=== PATIENT | male | born 1955 | race Caucasian/White ===

== ENCOUNTER → 2016-03-28 | Outpatient (CLI) | payer OTHER | LOC: RAD 12:02 | PROVIDERS: ATTEND Internal Medicine | DX: C71.2 Malignant neoplasm of temporal lobe (principal) | CPT/HCPCS: 70553; A9577 ==

== ENCOUNTER → 2016-06-21 | Outpatient (CLI) | payer OTHER | LOC: RAD 13:21 | PROVIDERS: ATTEND Internal Medicine | DX: C71.2 Malignant neoplasm of temporal lobe (principal) | CPT/HCPCS: 70553; A9577 ==

== ENCOUNTER → 2016-08-23 | Outpatient (CLI) | payer OTHER ==
--- NOTE | 2016-08-23 15:39 | RADIOLOGY REPORT (SQ) ---
EXAM DESCRIPTION: MRI HEAD COMBO COMPLETED DATE/TIME: 08/23/2016 2:57 pm REASON FOR STUDY: MALIGNANT NEOPLASM OF TEMPORAL LOBE C71.2 MALIGNANT NEOPLASM OF TEMPORAL LOBE COMPARISON: 06/21/2016 TECHNIQUE: Multiplanar imaging includes noncontrasted T1, T2, FLAIR, diffusion with ADC map and post gadolinium contrast T1 sequences. Images stored on PACS. CONTRAST TYPE AND DOSE: 15 mL Multihance. RENAL FUNCTION: GFR > 60. LIMITATIONS: None. FINDINGS: Intra-axial cavity posterior left temporal lobe status post craniotomy not significantly c hanged in size. However associated primarily vasogenic edema and non mass enhancement now extends in to the anterior margins of the temporal lobe, best seen on series 12, image 18, and series 7, image 1 8. Progression of disease medially also evident series 11, image 25 now abutting the falx in the occ ipital lobe. No midline shift. No new lesions are identified. IMPRESSION: Progression of local invasion from residual tumor in the surgical bed. TECHNICAL DOCUMENTATION: JOB ID: [id number] [employer]- All Rights Reserved
== END ==
LOC: RAD 13:29
PROVIDERS: ATTEND Internal Medicine
DX: C71.2 Malignant neoplasm of temporal lobe (principal)
CPT/HCPCS: 82565; 70553; A9577

== ENCOUNTER 2016-10-18 19:54 | Inpatient (IN) | payer OTHER ==
[~2016-10-18 19:54] MED LIST: ROCURONIUM BROMIDE INJ 50 MG/5 ML VIAL IV ONE
[2016-10-18] MEDS ORDERED: NORMAL SALINE 1000 ML 1,000 ML IV PRN (20:04)
[2016-10-18] MEDS ORDERED: PIPERACILLIN/TAZOBACTAM 3.375 GM VIAL IV ONE (20:13)
[2016-10-18] MEDS ORDERED: VANCOMYCIN HCL INJ 1000 MG VIAL ONE (20:15)
[2016-10-18] MEDS ORDERED: NOREPINEPHRINE BITARTRATE INJ/PF 4 MG/4 ML SDV IV ONE (20:15)
[2016-10-18] MEDS ORDERED: NORMAL SALINE 1000 ML 1,000 ML IV ONE ×2 (20:16→21:01)
--- NOTE | 2016-10-18 20:18 | ER Document Report ---
ED General - General Chief Complaint: Respiratory Arrest Stated Complaint: DIFFICULTY BREATHING Time Seen by Provider: 10/18/16 20:03 Cannot obtain history due to: Unstable vital signs Notes: Patient is a 61-year-old male reportedly with a history of glioblastoma who arrives by EMS for respiratory distress, altered mental status and tachycardia. Patient denies being actively bagged. No additional history can be obtained secondary to the critical nature of this patient at time of arrival. TRAVEL OUTSIDE OF THE [place] IN LAST 30 DAYS: No - Related Data Allergies/Adverse Reactions: No Known Allergies Allergy (Verified 03/12/15 17:40) Home Medications: Current Home Medications Atropine Sulfate [Atropine 1% Oph Soln 5 ml] 4 drop SL Q2HP PRN 10/19/16 [ History] Levetiracetam [Keppra] 750 mg PO BID 10/19/16 [History] Past Medical History - General Information source: Emergency Med Personnel - Social History Smoking Status: Unknown if Ever Smoked Lives with: Spouse/Significant other Family History: Reviewed & Not Pertinent Malignancy Medical History: Reports Hx Brain Cancer Past Surgical History: Reports: Hx Abdominal Surgery - Hernia Review of Systems - Review of Systems -: Yes ROS unobtainable due to patient's medical condition Physical Exam - Vital signs Vitals: Resp Pulse Ox 28 H 86 L 10/18/16 19:56 10/18/16 19:56 Interpretation: Hypotensive, Tachycardic, Hypoxic, Tachypneic, Febrile Notes: PHYSICAL EXAMINATION: GENERAL: Obtunded, GCS 3 HEAD: Atraumatic, normocephalic. EYES: sclera anicteric, conjunctiva are normal. ENT: nares patent, oropharynx clear without exudates. Dry mucous membranes. NECK: supple without lymphadenopathy LUNGS: Hypoventilatory in all lung orr. HEART: Regular tachycardia without murmurs ABDOMEN: Soft, normoactive bowel sounds. No guarding, no rebound. No masses appreciated. EXTREMITIES: no pitting or edema. No cyanosis. NEUROLOGICAL: GCS 3. No response to noxious stimuli in any extremity. PSYCH: Obtunded SKIN: Warm, Dry, normal turgor, no rashes or lesions noted. Course - Re-evaluation Re-evalutation: 10/18/16 20:13 Patient presents in respiratory distress, requiring bagging at time of arrival, 76% on room air. Patient was obtunded, GCS of 3. On initial assessment patient is tachycardic into the 150s, unresponsive, tachypneic but ventilating poorly. He was visibly cyanotic. Immediately upon arrival, 2 additional points of access were established. Patient was placed on monitoring and initial set of vitals were obtained. This did show tachycardia, hypoxemia despite bagging, and mild hypotension with an initial systolic of 96. A norepinephrine infusion was preventively started in anticipation of hypotension in the setting of intubation. IV fluids were initiated. Full laboratories were pulled. A temp Ruffin was placed. After establishing an norepi infusion, patient was intubated using ketamine and rocuronium. Patient did have a highly anterior airway requiring a second attempt to achieve intubation. Despite intubation, patient remained mildly hypoxemic at 95% on 100% FiO2. A portable chest x-ray will be obtained as I suspect likely pneumonia as etiology of his presentation today. Empiric broad-spectrum antibiotics have been initiated with IV piperacillin and sulbactam and vancomycin. 10/18/16 20:18 Chest x-ray does demonstrate apparent bilateral lobe pneumonia. Initial FiO2 was set to 100%, PEEP set to 8 and patient was satting 91-92%. PEEP was increased to 12 and FiO2 remain at 100%. 10/18/16 20:43 FiO2 has been able to be weaned down to 80% PEEP remains at 12. Patient is saturating 94% on these settings. Will continue to try to down titrate both PEEP and FiO2. Laboratories are returning demonstrating leukocytosis consistent with the overall picture of severe sepsis. 10/18/16 21:01 Patient's lactate is elevated at 4.4 consistent with severe sepsis. Third liter of fluid will be started at this time. 10/18/16 21:17 I have discussed the patient's grave status with his and son at length. They inform me that the patient is a terminal hospice patient but they had still wanted him as a full code. I have discussed this case at length with the patient's oncologist Dr. Whelan who reports that the patient has had a progressive decline and has an incurable glioblastoma and is not a candidate for any additional therapies. 10/18/16 21:41 I have discussed at length with the and son proceeding with comfort measures which would include extubation with aggressive analgesia and anxiolysis as well as complete discontinuation of all therapies toward curative measures including IV fluids, IV antibiotics, and central line placement. I have presented the alternative of continuing aggressive measures that we have already pursued including ICU admission, ongoing IV antibiotics, vasopressors, continued aggressive IV hydration. After an extensive conversation and presenting the approaches to both the and son, they have elected to proceed with comfort measures. I believe that this is completely appropriate given that the patient does have terminal glioblastoma and is already on hospice care. Will begin a Versed infusion, plan for intermittent fentanyl boluses as needed, we will remove the Ruffin catheter, 1 of the IV line, discontinue IV fluid, discontinue the monitor, and contact respiratory therapy for extubation. 10/18/16 22:02 Patient has been extubated, a Versed infusion was started and 100 mcg of fentanyl was given. Glycopyrrolate was given to decrease secretions. Family has been brought to the bedside. Patient is very rapidly desaturated to the mid 70s but does not appear to have any air hunger. Will continue to monitor although anticipate the patient will pass relatively quickly 10/18/16 22:32 Patient is maintaining his BP, has increased his tachycardia. Remains hypoxic although he is maintained at 70% for over 30 minutes now. I discussed this case with Dr. Beckwith who will admit for comfort measures to the medical floor. - Vital Signs Vital signs: Temp Pulse Resp BP Pulse Ox 98.1 F 22 H 93/50 L 80 L 10/19/16 00:00 10/19/16 01:38 10/19/16 00:00 10/19/16 00:00 - Laboratory Result Diagrams: 10/18/16 20:06 10/18/16 20:06 Laboratory results interpreted by me: 10/18/16 10/18/16 10/18/16 20:06 20:06 20:06 WBC 25.0 H RBC 5.86 H Hgb 18.9 H Hct 58.6 H MCV 100 H RDW 14.2 H Band Neutrophils % 19 H Lymphocytes % (Manual) 7 L Abs Neuts (Manual) 19.8 H Abs Monocytes (Manual) 3.3 H Sodium 152.4 H Chloride 110 H BUN 77 H Creatinine 2.10 H Est GFR ( Amer) 39 L Est GFR (Non-Af Amer) 32 L Glucose 209 H Lactic Acid 4.4 H Total Bilirubin 1.6 H Direct Bilirubin 0.9 H AST 83 H ALT 96 H Alkaline Phosphatase 142 H Urine Protein Urine Ketones Urine Bilirubin Urine Urobilinogen 10/18/16 20:45 WBC RBC Hgb Hct MCV RDW Band Neutrophils % Lymphocytes % (Manual) Abs Neuts (Manual) Abs Monocytes (Manual) Sodium Chloride BUN Creatinine Est GFR ( Amer) Est GFR (Non-Af Amer) Glucose Lactic Acid Total Bilirubin Direct Bilirubin AST ALT Alkaline Phosphatase Urine Protein 100 H Urine Ketones TRACE H Urine Bilirubin SMALL H Urine Urobilinogen 2.0 H - Diagnostic Test Radiology reviewed: Image reviewed, Reports reviewed Radiology results interpreted by me: 10/18/16 20:18 Chest x-ray: Apparent bilateral infiltrates. ET tube in the appropriate position. - EKG Interpretation by Me Additional EKG results interpreted by me: 10/19/16 03:12 Sinus tachycardia. Rate 152. QTC is prolonged at 541. Findings consistent with LVH. Procedures - Intubation Orotracheal Time of Intubation: 20:10 Airway evaluation: Copious secretions, Other - Anterior airway Mallampati Classification: Class 3 Medications: Ketamine, Other Critical Care Note - Critical Care Note Total time excluding time spent on procedures (mins): 98 Comments: Critical care time spent obtaining history from patient or surrogate, discussions with consultants, development of treatment plan with patient or surrogate, evaluation of patient's response to treatment, examination of patient , ordering and performing treatments and interventions, ordering and review of laboratory studies, re-evaluation of patient's condition, ordering and review of radiographic studies and review of old charts Discharge - Discharge Clinical Impression: Severe sepsis, Respiratory failure, Hypoxemia, Glioblastoma, Comfort measures only status, Lactic acidosis, Multifocal pneumonia Condition: Critical Disposition: ADMITTED INPATIENT [facility] Unit Admitted: Medical Floor
[2016-10-18] MEDS ORDERED: FENTANYL CITRATE INJ/PF 100 MCG/2 ML AMPUL ONE (20:30)
[2016-10-18 20:36] LABS: HEMATOCRIT 58.6 % (37.9-51.0); HEMOGLOBIN 18.9 g/dL (13.5-17.0); HGB HCT DIFFERENCE -1.9; MEAN CORPUSCULAR HEMOGLOBIN 32.3 pg (27.0-33.4); MEAN CORPUSCULAR HGB CONC 32.3 g/dL (32.0-36.0); MEAN CORPUSCULAR VOLUME 100 fl (80-97); RED BLOOD COUNT 5.86 10^6/uL (4.35-5.55); RED CELL DISTRIBUTION WIDTH 14.2 % (11.5-14.0)
[2016-10-18 20:45] LABS: ALANINE AMINOTRANSFERASE 96 U/L (21-72); ALBUMIN 4.1 g/dL (3.5-5.0); ALKALINE PHOSPHATASE 142 U/L (38-126); ANION GAP 18 (5-19); ASPARTATE AMINO TRANSFERASE 83 U/L (17-59); BILIRUBIN,DIRECT 0.9 mg/dL (0.0-0.4); BILIRUBIN,TOTAL 1.6 mg/dL (0.2-1.3); BLOOD UREA NITROGEN 77 mg/dL (7-20); CALCIUM 9.8 mg/dL (8.4-10.2); CARBON DIOXIDE 24 mmol/L (22-30); CHLORIDE 110 mmol/L (98-107); GLUCOSE 209 mg/dL (75-110); SODIUM 152.4 mmol/L (137-145); TOTAL PROTEIN 7.9 g/dL (6.3-8.2)
--- NOTE | 2016-10-18 20:46 | RADIOLOGY REPORT (SQ) ---
EXAM DESCRIPTION: CHEST SINGLE VIEW COMPLETED DATE/TIME: 10/18/2016 8:29 pm REASON FOR STUDY: fever, intubation COMPARISON: 04/22/2015 EXAM PARAMETERS: NUMBER OF VIEWS: One view. TECHNIQUE: Single frontal radiographic view of the chest acquired. RADIATION DOSE: NA LIMITATIONS: None. FINDINGS: LUNGS AND PLEURA: Consolidation right lower lobe with additional patchy airspace disease i n the right middle lobe and left lower lobe compatible with multifocal pneumonia. MEDIASTINUM AND HILAR STRUCTURES: Stable in size and contour. HEART AND VASCULAR STRUCTURES: Heart normal in size. Normal vasculature. BONES: No acute findings. HARDWARE: Endotracheal tube terminates approximately 15 mm above the александр on 1st AP image and 2.9 c m above the александр on 2nd AP image. Nasogastric tube terminates expected location of the stomach. OTHER: No other significant finding. IMPRESSION: MULTIFOCAL AIRSPACE DISEASE COMPATIBLE WITH PNEUMONIA. SATISFACTORY PLACEMENT OF ENDOTRACHEAL TUBE AND NASOGASTRIC TUBE. TECHNICAL DOCUMENTATION: JOB ID: [id number]
[2016-10-18] MEDS ORDERED: ACETAMINOPHEN 650 MG SUPP.RECT PR ONE (21:00)
[2016-10-18 21:03] LABS: BASOPHILS % (MANUAL) 0 % (0-2); EOSINOPHILS % (MANUAL) 0 % (0-6); LYMPHOCYTES % (MANUAL) 7 % (13-45); TOTAL CELLS COUNTED 100
[2016-10-18 21:04] LABS: ANISOCYTOSIS SLIGHT; TOXIC VACUOLATION PRESENT
[2016-10-18 21:06] LABS: PLATELET CLUMPS PRESENT; POIKILOCYTOSIS SLIGHT
[2016-10-18 21:08] LABS: BAND NEUTROPHILS % (MANUAL) 19 % (3-5); OVALOCYTES SLIGHT
[2016-10-18] MEDS: FENTANYL CITRATE INJ/PF 100 MCG/2 ML AMPUL IV PRN ×2 (21:08→22:09)
[2016-10-18 21:39] LABS: VENOUS BLOOD HCO3 22.8 mmol/L (20-32); VENOUS BLOOD PCO2 47.8 mmHg (35-63); VENOUS BLOOD PH 7.3 (7.30-7.42)
[2016-10-18] MEDS ORDERED: MIDAZOLAM HCL 100 ML IV PRN (21:39)
[2016-10-18] MEDS ORDERED: GLYCOPYRROLATE INJ 0.4 MG/2 ML VIAL IM ONE (21:39)
[2016-10-18] MEDS ORDERED: ONDANSETRON HCL INJ/PF 4 MG/2 ML SDV IV ONE (22:00)
[2016-10-18 22:01] LABS: AMORPHOUS SEDIMENT,URINE TRACE /HPF; APPEARANCE,URINE CLOUDY; BILIRUBIN,URINE SMALL (NEGATIVE); GLUCOSE, URINE NEGATIVE (NEGATIVE); KETONES,URINE TRACE mg/dL (NEGATIVE); LEUKOCYTE ESTERASE,URINE NEGATIVE (NEGATIVE); NITRITE,URINE NEGATIVE (NEGATIVE); PROTEIN,URINE 100 mg/dL (NEGATIVE); URINE SPECIFIC GRAVITY 1.028
[2016-10-18] MEDS ORDERED: 1/2 NORMAL SALINE 1,000 ML IV PRN (23:41)
[2016-10-18] MEDS ORDERED: MORPHINE SULFATE 10 MG/ML INJ IV PRN (23:42)
[2016-10-18] MEDS ORDERED: IPRATROPIUM/ALBUTEROL 0.5-2.5 MG/3 ML AMPUL NEB PRN (23:43)
--- NOTE | 2016-10-19 00:02 | PDOC H&P ---
History of Present Illness Admission Date/PCP: 10/18/16 22:43 DENISE PEREZ MD Patient complains of: Difficulty breathing History of Present Illness: DELIO TUCKER is a 61 year old male with known terminal glioblastoma, with patient not a candidate for any additional therapy, per ER physician discussion earlier with Dr. Perez, who presents to the emergency room in profound respiratory distress, obtunded, with [place] Coma Scale of 3. Initial wishes of family were for full code workup and treatment. thus, he was Intubated in the emergency room, with antibiotic started, with chest x-ray revealing multifocal pneumonia. However, after emergency room physician discussed the patient with Dr. Perez, and had lengthy discussion with son and , who were present at his bedside, they have decided to proceed with comfort measures only. Patient has been extubated by emergency room physician, with Ruffin catheter removed. Patient has been discussed with emergency room physician who evaluated the patient. Patient is unresponsive and is able to provide no history whatsoever in terms of acute or chronic events, review of systems, personal habits, family history, etc. and son are present at bedside. No old inpatient records available for review. No further information available this point in time. . Dictation via voice recognition software. Laboratory results are listed in [employer] and are reviewed. X-ray summary results are listed below, with full report(s) reviewed. . EKG reviewed. No known drug allergies. Home medications initially autopopulated into [employer] may not accurately reflect patient's true medications, dosages, and/or frequencies. photographic laboratory technician to reconcile medications. Medications discussed, with bottle review also, with . REVIEW OF SYSTEMS: See history and present illness. No further information available this point in time. PHYSICAL EXAMINATION: 5 feet 9 inches tall. 70 kg. BMI 22.8 kg/m. As part of comfort care measures , patient has been taken off the monitor. Thin otherwise well-developed male appearing approximately his stated age. Asleep. Maintaining airway well. and son are present at his side. Skin is warm and dry. No grossly obvious evidence of rash in areas of skin examined. No subcutaneous nodules palpated. ENT: Hearing cannot be adequately evaluated due to his current status. Eyes: No scleral icterus. Pupils equal and reactive to light at 3 mm. [place] conjunctivae. No raccoon eyes. Neck is nontender to gentle palpation. Midline trachea. No palpable thyroid nodule mass enlargement or tenderness. Lymphatic: No palpable cervical or clavicular nodes. Neck and lymphatic exams limited by patient body habitus. Psychiatric: Cannot be adequately evaluated due to his current status. Lungs: Auscultation reveals equal breath sounds bilaterally. No use of accessory respiratory muscles. Faintly coarse breath sounds diffusely bilaterally. Cardiovascular: Heart regular rate and rhythm, without gallop murmur or rub. No carotid or abdominal aortic bruits. No ankle or pedal edema. Faintly palpable dorsalis pedis pulses. Abdomen:soft slightly distended nontender with positive bowel sounds. Unable to adequately evaluate abdomen for masses or organomegaly due to distention. Extremities: Feet are warm and dry. No calf tenderness to compression. No grossly obvious visual evidence of calf swelling. Past Medical History Malignancy Medical History: Reports: Brain Cancer - Glioblastoma, end-stage Social History Information Source: Relative - , Emergency Med Personnel, [facility] Records Lives with: Spouse/Significant other Smoking Status: Unknown if Ever Smoked - Advance Directive Resuscitation Status: Comfort Measures Only Surrogate healthcare decision maker:: Family History Family History: Reviewed & Not Pertinent Parental Family History Reviewed: No - Patient not able to provide any information. Children Family History Reviewed: No - Patient not able to provide any information. Sibling(s) Family History Reviewed.: No - Patient not able to provide any information. Medication/Allergy Home Medications: Atropine Sulfate [Atropine 1% Oph Soln 5 ml] 4 drop SL Q2HP PRN 10/19/16 Diazepam [Valium 5 mg Tablet] 5 mg SL QIDP PRN #14 tablet 10/19/16 Morphine Sulfate 0.25 ml PO Q1HP PRN #30 ml 10/19/16 Allergies/Adverse Reactions: No Known Allergies Allergy (Verified 03/12/15 17:40) Physical Exam Vital Signs: Temp Pulse Resp BP Pulse Ox 99.9 F 20 109/78 86 L 10/18/16 21:46 10/18/16 22:00 10/18/16 21:46 10/18/16 22:00 Intake & Output 10/17/16 10/18/16 10/19/16 00:59 00:59 00:59 Weight 70 kg Results Impressions: Chest X-Ray 10/18/16 20:03 IMPRESSION: MULTIFOCAL AIRSPACE DISEASE COMPATIBLE WITH PNEUMONIA. SATISFACTORY PLACEMENT OF ENDOTRACHEAL TUBE AND NASOGASTRIC TUBE. Assessment & Plan - Diagnosis (1) Acute respiratory failure with hypoxemia Is this a current diagnosis for this admission?: Yes (2) Comfort measures only status Is this a current diagnosis for this admission?: YesPlan: Bedside discussion in layperson's terms with and son. We will continue with maintenance IV fluid. If IV becomes nonfunctional or comes out, will not reinsert. As needed medications for comfort. No monitor. No vital signs. No labs. No x-rays. Impression and plans were discussed with and son, both of whom concur. Time spent in evaluation and management of patient: 48 minutes. (3) Multifocal pneumonia Is this a current diagnosis for this admission?: YesPlan: and son both wish to continue with antibiotics. (4) Glioblastoma Is this a current diagnosis for this admission?: YesPlan: End-stage. Per emergency room physician with Dr. Perez, patient not a candidate for any additional therapy. - Time Time Spent: 30 to 50 Minutes Medications reviewed and adjusted accordingly: Yes Anticipated discharge: Other Within: within 24 hours - Inpatient Certification Based on my medical assessment, after consideration of the patient's comorbidities, presenting symptoms, or acuity I expect that the services needed warrant INPATIENT care.: Yes I certify that my determination is in accordance with my understanding of Medicare's requirements for reasonable and necessary INPATIENT services [42 CFR 412.3e].: Yes Medical Necessity: Need For IV Fluids, Need for IV Antibiotics, Other Post Hospital Care: Other
[2016-10-19 00:43] VITALS: BP 93/50
[2016-10-19] MEDS ORDERED: CEFEPIME 2 GM/D5W RTU 50 ML IV SCH (10:00)
[2016-10-19] MEDS ORDERED: AZITHROMYCIN 500 MG in DEXTROSE 5%-WATER 250 ML IV SCH (10:00)
--- NOTE | 2016-10-19 12:36 | PDOC CONSULTATION ---
Consultation Consult Date: 10/19/16 Attending physician:: ESTEFANIA MARTINEZ Consult reason:: Known history of progressive glioblastoma, weakness History of Present Illness Admission Date/PCP: 10/18/16 23:43 DENISE PEREZ MD Patient complains of: Weakness, dehydration History of Present Illness: 61-year-old male with known history of glioblastoma, we have been caring for them now for about 2 years, recently he has had overt progression of disease, he has progressed through multiple lines of therapy and ultimately we decided that he was not a candidate for any further therapies, we have admitted him to hospice, he was at home and became obtunded, his and family decided to discontinue hospice and bring him to the hospital. He was intubated for a short time, and then he was extubated to room air, family ultimately decided to continue comfort measures only, today we had a long discussion about that, we spent greater than 70 minutes in discussion as well as coordination of care this morning. Past Medical History Malignancy Medical History: Reports: Brain Cancer Past Surgical History Past Surgical History: Reports: Other - Craniotomy with biopsy Social History Lives with: Spouse/Significant other Smoking Status: Unknown if Ever Smoked - Advance Directive Resuscitation Status: Comfort Measures Only Family History Family History: Reviewed & Not Pertinent Parental Family History Reviewed: Yes Children Family History Reviewed: Yes Sibling(s) Family History Reviewed.: Yes Medication/Allergy Home Medications: Atropine Sulfate [Atropine 1% Oph Soln 5 ml] 4 drop SL Q2HP PRN 10/19/16 Diazepam [Valium 5 mg Tablet] 5 mg SL QIDP PRN #14 tablet 10/19/16 Morphine Sulfate 0.25 ml PO Q1HP PRN #30 ml 10/19/16 Allergies/Adverse Reactions: No Known Allergies Allergy (Verified 03/12/15 17:40) Review of Systems ROS unobtainable: Due to mental status Physical Exam Vital Signs: Temp Pulse Resp BP Pulse Ox 98.1 F 22 H 93/50 L 80 L 10/19/16 00:00 10/19/16 01:38 10/19/16 00:00 10/19/16 00:00 Intake & Output 10/18/16 10/19/16 10/20/16 06:59 06:59 06:59 Intake Total 275 Balance 275 General appearance: PRESENT: no acute distress Neurological exam: PRESENT: altered, other - Obtunded Results Impressions: Chest X-Ray 10/18/16 20:03 IMPRESSION: MULTIFOCAL AIRSPACE DISEASE COMPATIBLE WITH PNEUMONIA. SATISFACTORY PLACEMENT OF ENDOTRACHEAL TUBE AND NASOGASTRIC TUBE. Assessment & Plan - Diagnosis (1) Glioblastoma Is this a current diagnosis for this admission?: YesPlan: No longer a candidate for any therapy, comfort measures only, we are coordinating with community hospice to probably discharge today with comfort measures, coordinating home equipment needed for this. - Time Time Spent: Greater than 70 Minutes Critical Time spent with patient: 35 or more minutes
--- NOTE | 2016-10-19 14:44 | PDOC DISCHARGE SUMMARY ---
General - Admit/Disc Date/PCP Admission Date/Primary Care Provider: 10/18/16 23:43 DENISE LEMON MD Discharge Date: 10/19/16 - Additional Information Resuscitation Status: Comfort Measures Only Discharge Diet: As Tolerated Discharge Activity: Bedrest Home Medications: Atropine Sulfate [Atropine 1% Oph Soln 5 ml] 4 drop SL Q2HP PRN 10/19/16 Diazepam [Valium 5 mg Tablet] 5 mg SL QIDP PRN #14 tablet 10/19/16 Morphine Sulfate 0.25 ml PO Q1HP PRN #30 ml 10/19/16 History of Present Illness Patient complains of: difficulty breathing History of Present Illness: DELIO TUCKER is a 61 year old male Hospital Course Hospital Course: Initial wishes of family workup pursued with full code treatment. However, after emergency room physician discussed the patient with Dr. Lemon, and had lengthy discussion with son and , who were present at his bedside, they have decided to proceed with comfort measures only. Patient has been extubated by emergency room physician, with Ruffin catheter removed. Patient has been discussed with emergency room physician who evaluated the patient. Patient is unresponsive and is able to provide no history whatsoever in terms of acute or chronic events, review of systems, personal habits, family history, etc. and son are present at bedside. No old inpatient records available for review. I inherited his care this morning and he remains unresponsive with irregular respiratory pattern, RA sats of 80%. I spoke with his and she confirms [facility], just seen last Friday and confirmed available for continue care at home. His states emphatically that she doesn't want him to in the hospital and desperately wants to take him home. I discussed the case with dr lemon and confirms his disease is progressive and there are no treatment options available. She asked if treating his pneumonia would help him and while we could suppress his symptoms, given his current mental state it is high probability he will aspirate and never clear his pneumonia. Furthermore, his O2 sat is low and the neurologic damage likely already taking place so his chance for meaningful recovery passed with relentless progression of his disease. Arrangements made for Hospice to meet them at the home later today. I demonstrated how to draw up and administer liquid morphine. We discussed terminal agitation and other end of life symptoms and which medicine to use to control the most likely symptoms as they arise. She seemed able and is determined to get him home where she can continue to care for him. Physical Exam Vital Signs: Temp Pulse Resp BP Pulse Ox 98.1 F 22 H 93/50 L 80 L 10/19/16 00:00 10/19/16 01:38 10/19/16 00:00 10/19/16 00:00 Intake & Output 10/18/16 10/19/16 10/20/16 06:59 06:59 06:59 Intake Total 275 0 Balance 275 0 General appearance: PRESENT: no acute distress Mouth exam: PRESENT: moist Respiratory exam: PRESENT: rales, tachypnea Cardiovascular exam: PRESENT: RRR, tachycardia GI/Abdominal exam: PRESENT: diminished bowel sounds, soft Extremities exam: PRESENT: +1 edema Neurological exam: PRESENT: altered Results Impressions: Chest X-Ray 10/18/16 20:03 IMPRESSION: MULTIFOCAL AIRSPACE DISEASE COMPATIBLE WITH PNEUMONIA. SATISFACTORY PLACEMENT OF ENDOTRACHEAL TUBE AND NASOGASTRIC TUBE. Qualifiers PATEINT BEING DISCHARGED WITH ANY OF THE FOLLOWING DIAGNOSIS?: No VTE patient discharged on overlapping Therapy?: No Reason(s) for not prescribing Overlap Therapy:: Not indicated Plan Discharge Plan: transfer home for ongoing Hospice care; she already has Rxs for valium and oramorph and haldol and clear understanding of how and when to administer. Time Spent: Greater than 30 Minutes
--- NOTE | 2016-10-19 15:18 | EKG REPORT ---
SEVERITY:- ABNORMAL ECG - SINUS TACHYCARDIA LEFT BUNDLE BRANCH BLOCK l : Confirmed by: Britney Mccray MD 19-Oct-2016 15:17:42
[2016-10-21 14:24] LABS: PATH REVIEW PATHOLOGIST REVIEWED
== END 2016-10-19 17:58 | disposition hospice, home (50) | DRG 208 ==
LOC: ER 19:54 → UNDOADMIN 22:43 → EH 22:43 → 5 10-19 01:15
PROVIDERS: ADMIT Family Medicine; ATTEND Family Medicine
PROC: 0BH17EZ Insertion of Endotracheal Airway into Trachea, Via Natural or Artificial Opening (ICD-10-PCS; principal; 2016-10-18)
PROC: 5A1935Z Respiratory Ventilation, Less than 24 Consecutive Hours (ICD-10-PCS; 2016-10-18)
DX: J18.9 Pneumonia, unspecified organism (principal); J96.01 Acute respiratory failure with hypoxia; C71.9 Malignant neoplasm of brain, unspecified; E86.0 Dehydration; Z51.5 Encounter for palliative care
CPT/HCPCS: 36415; 51702; 71010; 80053; 81001; 82803; 83605; 85025; 87040; 87086; 93005; 93010; 96361; 96365; 96372; 96375; 99291; 99292; J2270; J2405; J2543; J3010; J3370; J3490; J7030